=== PATIENT | male | born 1950 | race Caucasian/White ===

== ENCOUNTER 2025-01-19 08:32 | Observation (INO) | payer SELFPAY, OTHER ==
--- NOTE | 2025-01-13 12:31 | EKG12_ITS ---
Test Reason : PREOP Blood Pressure : */* mmHG Vent. Rate : 57 BPM Atrial Rate : 57 BPM P-R Int : 172 ms QRS Dur : 76 ms QT Int : 380 ms P-R-T Axes : 71 26 66 degrees QTcB Int : 369 ms Sinus bradycardia Otherwise normal ECG Confirmed by CHAVEZ MURPHY, LUOIS ([id number]), senior technical editor WILL VELAZQUEZ ([id number]) on 01/14/2025 7:36:28 AM Referred By: José Miguel Artis Confirmed By: LOUIS BYRNE MD
[2025-01-13 13:09] LABS: Hematocrit 39.4 % (40-54); Hemoglobin 13.8 g/dL (13.0-16.5); Mean Corp Hgb Conc 35.0 g/dL (32-36); Mean Corpuscular Volume 88.5 fL (80-94); Mean Platelet Vol. 10.4 fl (6.2-12.0); Platelet Count 283 K/mm3 (150-450); RBC Distribution Width CV 13.4 % (11.6-14.6); RBC Distribution Width SD 43.8 fl (35.1-43.9); Red Blood Count 4.45 M/mm3 (4.6-6.2); White Blood Count 5.5 K/mm3 (4.4-11.0)
[2025-01-13 14:06] LABS: Anion Gap 12 (5-15); BUN 17 mg/dL (4-19); BUN/Creat Ratio 16.2 RATIO (10-20); Calcium,Total 8.9 mg/dL (7.6-11.0); Carbon Dioxide 24.3 mmol/L (21.0-32.0); Chloride 105 mmol/L (98-108); Glucose 139 mg/dL (70-99); Potassium 4.0 mmol/L (3.3-5.1)
[2025-01-19] VITALS (18 sets, daily range): BP systolic 120–161; BP diastolic 69–99; PULSE 60–83; RESP 14–18; TEMP 35.8–36.8; O2SAT 92–98; BMI 27.0
--- OUTSIDE RECORDS SUMMARY | 2025-01-19 06:19 | XMS RPT_ITS | CCD ---
Author Organization [facility] Care Team Providers Care Outreach Liaison Name Role Phone ANTONY DENSON DO Primary Care Physician DR. TANIA CROWE DO Attending Unavailable ANTONY DENSON DO Primary Care Unavailable Rebeca OLSEN, Mirlande Longo Primary Care Unavailabl e José Miguel Artis Referring Unavailable José Miguel Artis Attending Unavailable José Miguel Artis Admitting Unavailable Medications Current Medications Medication Drug Class(es) Dates Sig (Normalized) Sig (Original) cephalexin 500 mg oral capsule (1 source) Cephalosporin Antibacterial Start: 02-27-2022 End: 03-06-2022 cephalexin 500 mg oral capsule Dose : 500 mg = 1 cap(s), Oral, QID, Take with a probiotic, X 7 day(s), # 28 cap(s), 0 Refill(s), 03/06/22 20:45:00 EDT, 81.8 Start Date: 02/27/22 Stop Date: 03/06/22 Status: Ordered Results Test Name Value Interpretation Reference Range Facil ity 12 Lead EKGon 01-13-2025 12 Lead EKG [facility] Cardiovascular Services [address] [place] [address] 12 Lead EKG 01/13/25 1239 MR#: [id number] Acct: [id number] Name: TIMOTHY GREGORY Rep #: [id number] : 1950 74 From: Nick Byrne MD Attending Dr: Dr. José Miguel Artis MD Status: PRE [facility] Ordering Dr: José Miguel Artis MD Date: 01/13/25 Location: [facility] Sex: M C Admitted: Test Reason : PREOP Blood Pressure : */* mmHG Vent. Rate : 57 BPM Atrial Rate : 57 BPM P-R Int : 172 ms QRS Dur : 76 ms QT Int : 380 ms P-R-T Axes : 71 26 66 degrees QTcB Int : 369 ms Sinus bradycardia Otherwise normal ECG Confirmed by NICK BYRNE MD ([id number]), social media editor WILL VELAZQUEZ ([id number]) on 01/14/2025 7:36:28 AM Referred By: José Miguel Artis Confirmed By: NICK BYRNE MD 01/14/2536 Date Nick Byrne MD CC: HEDY Jose; Dr. José Miguel Artis MD Signed Normal [facility] Basic Metabolic Profile (BMP )on 01-13-2025 BUN/CRE 16.2 RATIO Normal 10-20 [facility] Comment on above: Performed By: #### L 100.0500, L500.2500 #### [facility] [address] [place], [address] Calcium [Mass/Vol] 8.9 mg/dL Normal 7.6-11.0 [facility] Comment on above: Performed By: #### L 100.0500, L500.2500 #### [facility] [address] [place], [address] Chloride [Moles/Vol] 105 mmol/L Normal 98-108 [facility] Comment on above: Performed By: #### L 100.0500, L500.2500 #### [facility] [address] [place], [address] CO2 [Moles/Vol] 24.3 mmol/L Normal 21.0-32.0 [facility] Comment on above: Performed By: #### L 100.0500, L500.2500 #### [facility] [address] [place], [address] Creatinine [Mass/Vol] 1.05 mg/dL Normal 0.70-1.20 [facility] Comment on above: Performed By: #### L 100.0500, L500.2500 #### [facility] [address] [place], [address] GAP 12 Normal 5-15 [facility] Comment on above: Performed By: #### L 100.0500, L500.2500 #### [facility] [address] [place], [address] GFR/1.73 sq M.predicted among non-blacks MDRD (S/P/Bld) [Vol rate/Area] 75 mL/min/{1.73_m2} Normal >60 [facility] Comment on above: Result Comment: mL/m in/1.73m2 CKD-EPI Creatinine Equation (2020) Performed By: #### L 100.0500, L500.2500 #### [facility] [address] [place], [address] Glucose [Mass/Vol] 139 mg/dL High 70-99 [facility] Comment on above: Performed By: #### L 100.0500, L500.2500 #### [facility] [address] [place], [address] Potassium [Moles/Vol] 4.0 mmol/L Normal 3.3-5.1 [facility] Comment on above: Result Comment: Hemo lysis present, Results??could be affected. ?? Performed By: #### L 100.0500, L500.2500 #### [facility] [address] [place], [address] Sodium [Moles/Vol] 141 mmol/L Normal 133-145 [facility] Comment on above: Performed By: #### L 100.0500, L500.2500 #### [facility] [address] [place], [address] Urea nitrogen [Mass/Vol] 17 mg/dL Normal 4-19 [facility] Comment on above: Performed By: #### L 100.0500, L500.2500 #### [facility] [address] [place], [address] CBC-Complete Blood Cnt No abrahamon 01-13-2025 Erythrocyte distribution width (RBC) [Ratio] 13.4 % Normal 11.6-14.6 [facility] Comment on above: Performed By: #### L 100.0500, L500.2500 #### [facility] [address] [place], [address] Hematocrit (Bld) [Volume fraction] 39.4 % Low 40-54 [facility] Comment on above: Performed By: #### L 100.0500, L500.2500 #### [facility] [address] [place], [address] Hemoglobin (Bld) [Mass/Vol] 13.8 g/dL Normal 13.0-16.5 [facility] Comment on above: Performed By: #### L 100.0500, L500.2500 #### [facility] [address] [place], [address] MCH (RBC) [Entitic mass] 31.0 pg Normal 27.0-32.0 [facility] Comment on above: Performed By: #### L 100.0500, L500.2500 #### [facility] [address] [place], [address] MCHC (RBC) [Mass/Vol] 35.0 g/dL Normal 32-36 [facility] Comment on above: Performed By: #### L 100.0500, L500.2500 #### [facility] [address] [place], [address] MCV (RBC) [Entitic vol] 88.5 fL Normal 80-94 [facility] Comment on above: Performed By: #### L 100.0500, L500.2500 #### [facility] [address] [place], [address] Platelet mean volume (Bld) [Entitic vol] 10.4 fL Normal 6.2-12.0 [facility] Comment on above: Performed By: #### L 100.0500, L500.2500 #### [facility] [address] [place], [address] Platelets (Bld) [#/Vol] 283 10*3/uL Normal 150-450 [facility] Comment on above: Performed By: #### L 100.0500, L500.2500 #### [facility] [address] [place], [address] RBC (Bld) [#/Vol] 4.45 10*6/uL Low 4.6-6.2 [facility] Comment on above: Performed By: #### L 100.0500, L500.2500 #### [facility] [address] [place], [address] RDW SD 43.8 fl Normal 35.1-43.9 [facility] Comment on above: Performed By: #### L 100.0500, L500.2500 #### [facility] [address] [place], [address] WBC (Bld) [#/Vol] 5.5 10*3/uL Normal 4.4-11.0 [facility] Comment on above: Performed By: #### L 100.0500, L500.2500 #### [facility] [address] [place], [address] XR HAND MINIMUM 3 VIEWS LEFT on 02-27-2022 XR HAND MINIMUM 3 VIEWS LEFT ORIGINAL EXAMINATION: THREE XRAY VIEWS OF THE LEFT HAND 02/27/2022 8:36 pm COMPARISON: None. HISTORY: ORDERING SYSTEM PROVIDED HISTORY: Reason for Exam: pain Laceration 1st and 2nd digits FINDINGS: Transverse minimally comminuted fracture at mid 1st proximal phalanx. Adjacent soft tissue swelling. Punctate radiopaque debris within the soft tissues of the distal 2nd digit. Carpal arcs are maintained. IMPRESSION: Transverse minimally comminuted fracture at mid 1st proximal phalanx. Punctate radiopaque debris within the soft tissues of the distal 2nd digit. I have personally reviewed the images of this examination and agree with the resident's findings and interpretation. Interpreted by: Minesh Marx Preliminary Report By: Nohemi Mcgill Electronically signed By Minesh Marx Dictated Date: 02/27/2022 8:37:31 PM Prelim Date: 02/27/2022 8:40:22 PM Sign Date: 02/27/2022 8:57:57 PM Ordering Provider: TANIA Domínguez [facility] Vital Signs Date Time Vital Sign Value Performing Clinician Armondi queenie 02-27-2022 19:51-0400 Body height 175.[address] TANIA CROWE DO [facility] 02-27-2022 19:51-0400 Body temperature 98.06 [degF] DR TANIA CROWE DO [facility] 02-27-2022 19:51-0400 Body weight 81.[address] TANIA CROWE DO [facility] 02-27-2022 19:51-0400 Diastolic blood pressure 88 mm[Hg] DR TANIA CROWE DO [facility] 02-27-2022 19:51-0400 Heart rate 71 /min DR TANIA CROWE DO [facility] 02-27-2022 19:51-0400 Respiratory rate 20 /min DR TANIA CROWE DO [facility] 02-27-2022 19:51-0400 Systolic blood pressure 176 mm[Hg] DR TANIA CROWE DO [facility] Encounters Encounter Date Encounter Type Care Provider Facility Start: 01-19-2025 ambulatory Mirlande Jose NP Fa cility:[facility] Start: 01-17-2025 Encounter for preprocedural cardiovascular examination José Miguel Artis [facility] Start: 02-27-2022 End: 02-27-2022 Emergency department patient visit DR. TANIA CROWE DO Facility:[facility] Start: 02-27-2022 End: 02-27-2022 Emergency department patient visit DR TANIA CROWE DO [facility] Payers Date Payer Category Payer Self-pay 2025 Unknown 0 2022 Unknown [id number] 1950 Unknown [id number] Unknown [id number] Social History Date Type Detail Facility Tobacco smoking status No Smoking Status Entered [facility] Sex Assigned At Male [facility] Functional Status Date Assessment Result Facility 02-27-2022 Functional Status Up ad shameka [facility] 02-27-2022 Functional Status Room check performed [facility] Mental Status Date Assessment Result Facility 02-27-2022 Mental Status Orientation Oriented x 4 [facility] 02-27-2022 Mental Status [facility] Discharge instructions 02-27-2022 Note Date & Type Note Facility 02-27-2022 Hospital Discharg e instructions Patient Education 02/27/2022 20:45:24 Laceration: All Closures Laceration: All Closures A laceration is a cut through the skin. This will usually require stitches (sutures) or tiago if it is deep. Minor cuts may be treated with a surgical tape closure or skin glue. Home care Your healthcare provider may prescribe an antibiotic. This is to help prevent infection. Follow all instructions for taking this medicine. Take the medicine every day until it is gone or you are told to stop. You should not have any left over. The healthcare provider may prescribe medicines for pain. If no pain medicines were prescribed, you can use abfz-ipo-llcpacc pain medicines. Follow instructions for taking any pain medicines. (Note: If you have chronic liver or kidney disease, or ever had a stomach ulcer or gastrointestinal bleeding, talk with your doctor before using these medicines.) Follow the healthcare provider s instructions on how to care for the cut. Keep the wound clean and dry. Do not get the wound wet until you are told it is OK to do so. If the area gets wet, gently pat it dry with a clean cloth. Replace the wet bandage with a dry one. If a bandage was applied and it becomes wet or dirty, replace it. Otherwise, leave it in place for the first 24 hours. Caring for sutures or tiago: Once you no longer need to keep them dry, clean the wound daily. First, remove the bandage. Then wash the area gently with soap and warm water, or as directed by the healthcare provider. Use a wet cotton swab to loosen and remove any blood or crust that forms. After cleaning, apply a thin layer of antibiotic ointment if advised. Then put on a new bandage unless you are told not to. Caring for skin glue: Don t put apply liquid, ointment, or cream on the wound while the glue is in place. Avoid activities that cause heavy sweating. Protect the wound from sunlight. Do not scratch, rub, or pick at the adhesive film. Do not place tape directly over the film. The glue should peel off within 5 to 10 days. Caring for surgical tape: Keep the area dry. If it gets wet, blot it dry with a clean towel. Surgical tape usually falls off within 7 to 10 days. If it has not fallen off after 10 days, you can take it off yourself. Put mineral oil or petroleum jelly on a cotton ball and gently rub the tape until it is removed. Once you can get the wound wet, you may shower as usual but do not soak the wound in water (no tub baths or swimming) Even with proper treatment, a wound infection may sometimes occur. Check the wound daily for signs of infection listed below. Scalp wounds During the first 2 days, you may carefully rinse your hair in the shower to remove blood, glass or dirt particles. After two days, you may shower and shampoo your hair normally. Do not soak your scalp in the tub or go swimming until the stitches or tiago have been removed. Talk with your healthcare provider before applying any antibiotic ointment to the wound. Mouth wounds Eat soft foods to reduce pain. If the cut is inside of your mouth, clean by rinsing after each meal and at bedtime with a mixture of equal parts water and hydrogen peroxide (do not swallow!). Or, you can use a cotton swab to directly apply hydrogen peroxide onto the cut. You may also be prescribed a chlorhexidine solution to rise with. Mouth wounds can be painful when eating. You may use an lunu-ufm-bleevmg local numbing solution for pain relief. If this is not available, you may use any numbing solution intended for teething babies. You may apply this directly to the sores with a cotton-tip swab or with your finger. Follow-up care Follow up with your healthcare provider as advised. Ask your healthcare provider how long sutures should be left in place. Be sure to return for suture removal as directed. If dissolving stitches were used in the mouth, these should fall out or dissolve without the need for removal. If tape closures were used, remove them yourself when your provider recommends if they have not fallen off on their own. If skin glue was used, the film will wear off by itself. Generally, you should keep healing wounds out of direct sunlight for the first couple of months to try to lessen scarring. When to seek medical advice Call your healthcare provider right away if any of these occur: Signs of infection, including increasing pain in the wound, increasing wound redness or swelling, or pus or bad odor coming from the wound Fever of 100.4 F (38. C) or higher, or as directed by your healthcare provider Stitches or tiago come apart or fall out or surgical tape falls off before 7 days Wound edges reopen Wound changes colors Numbness around the wound after any numbing medicine should have worn off Decreased movement around the injured area Call 911 Call 911 if you can't control the wound bleeding with direct pressure. [phone] [employer]. [address] [place] [address], [place] [address]. All rights reserved. This information is not intended as a substitute for professional medical care. Always follow your healthcare professional's instructions. Follow Up Care 02/27/2022 19:42:35 With:ERIC FOURNIER MD Address: [address] [place] [address]- [phone] When:2-4 days Comments:Call Tomorrow With:ANTONY DENSON DO Address: [address] [address] [place] [address]- [phone] When:2-4 days [facility] Clinical Note 02-27-2022 Note Date & Type Note Facility 02-27-2022 Note ORIGINAL EXAMINATION: THREE XRAY VIEWS OF THE LEFT HAND 02/27/2022 8:36 pm COMPARISON: None. HISTORY: ORDERING SYSTEM PROVIDED HISTORY: Reason for Exam: pain Laceration 1st and 2nd digits FINDINGS: Transverse minimally comminuted fracture at mid 1st proximal phalanx. Adjacent soft tissue swelling. Punctate radiopaque debris within the soft tissues of the distal 2nd digit. Carpal arcs are maintained. IMPRESSION: Transverse minimally comminuted fracture at mid 1st proximal phalanx. Punctate radiopaque debris within the soft tissues of the distal 2nd digit. I have personally reviewed the images of this examination and agree with the resident's findings and interpretation. Interpreted by: Minesh Marx Preliminary Report By: Nohemi Mcgill Electronically signed By Minesh Marx Dictated Date: 02/27/2022 8:37:31 PM Prelim Date: 02/27/2022 8:40:22 PM Sign Date: 02/27/2022 8:57:57 PM Ordering Provider: TANIA CROWE [facility] Clinical Note 02-27-2022 Note Date & Type Note Facility 02-27-2022 Note Discharge Instructions Thank you for allowing [facility] to assist you with your healthcare needs. The following is important discharge information regarding your hospital visit. Diagnosis from Today's Visit Finger injury - Minor What to Do Next Instructions from Your Care Team No qualifying data available. Post Acute Orders No qualifying data available. You Need to Schedule the Following Appointments Follow Up with ERIC FOURNIER MD When Within 2-4 days Why: Call Tomorrow Where: [address] [place] [address] [phone] Follow Up with ANTONY DENSON DO When Within 2-4 days Where: [address] [id number] [address] [place] [address]- [phone] Allergies NKA Medications Please ask your primary doctor or pharmacist before taking any other medication not listed, including over the counter drugs, herbal medications, vitamins and or supplements as they may interact with your home medications. What How Much When Instructions Last Dose New cephalexin (cephalexin 500 mg oral capsule) 1 cap by mouth Four (4) times a day Duration: 7 Days Take with a probiotic Printed Prescription Please take this list to your next doctor s visit. Bring all medications you take, including over the counter medications, herbals and other supplements with you to your doctor s visit. Patients and families are reminded to discard old lists and to update any records with all medication providers or retail pharmacies. Education Materials Laceration: All Closures A laceration is a cut through the skin. This will usually require stitches (sutures) or tiago if it is deep. Minor cuts may be treated with a surgical tape closure or skin glue. Home care Your healthcare provider may prescribe an antibiotic. This is to help prevent infection. Follow all instructions for taking this medicine. Take the medicine every day until it is gone or you are told to stop. You should not have any left over. The healthcare provider may prescribe medicines for pain. If no pain medicines were prescribed, you can use nluj-myy-lmngdrm pain medicines. Follow instructions for taking any pain medicines. (Note: If you have chronic liver or kidney disease, or ever had a stomach ulcer or gastrointestinal bleeding, talk with your doctor before using these medicines.) Follow the healthcare provider s instructions on how to care for the cut. Keep the wound clean and dry. Do not get the wound wet until you are told it is OK to do so. If the area gets wet, gently pat it dry with a clean cloth. Replace the wet bandage with a dry one. If a bandage was applied and it becomes wet or dirty, replace it. Otherwise, leave it in place for the first 24 hours. Caring for sutures or tiago: Once you no longer need to keep them dry, clean the wound daily. First, remove the bandage. Then wash the area gently with soap and warm water, or as directed by the healthcare provider. Use a wet cotton swab to loosen and remove any blood or crust that forms. After cleaning, apply a thin layer of antibiotic ointment if advised. Then put on a new bandage unless you are told not to. Caring for skin glue: Don t put apply liquid, ointment, or cream on the wound while the glue is in place. Avoid activities that cause heavy sweating. Protect the wound from sunlight. Do not scratch, rub, or pick at the adhesive film. Do not place tape directly over the film. The glue should peel off within 5 to 10 days. Caring for surgical tape: Keep the area dry. If it gets wet, blot it dry with a clean towel. Surgical tape usually falls off within 7 to 10 days. If it has not fallen off after 10 days, you can take it off yourself. Put mineral oil or petroleum jelly on a cotton ball and gently rub the tape until it is removed. Once you can get the wound wet, you may shower as usual but do not soak the wound in water (no tub baths or swimming) Even with proper treatment, a wound infection may sometimes occur. Check the wound daily for signs of infection listed below. Scalp wounds During the first 2 days, you may carefully rinse your hair in the shower to remove blood, glass or dirt particles. After two days, you may shower and shampoo your hair normally. Do not soak your scalp in the tub or go swimming until the stitches or tiago have been removed. Talk with your healthcare provider before applying any antibiotic ointment to the wound. Mouth wounds Eat soft foods to reduce pain. If the cut is inside of your mouth, clean by rinsing after each meal and at bedtime with a mixture of equal parts water and hydrogen peroxide (do not swallow!). Or, you can use a cotton swab to directly apply hydrogen peroxide onto the cut. You may also be prescribed a chlorhexidine solution to rise with. Mouth wounds can be painful when eating. You may use an lmrr-zyc-glimsxd local numbing solution for pain relief. If this is not available, you may use any numbing solution intended for teething babies. You may apply this directly to the sores with a cotton-tip swab or with your finger. Follow-up care Follow up with your healthcare provider as advised. Ask your healthcare provider how long sutures should be left in place. Be sure to return for suture removal as directed. If dissolving stitches were used in the mouth, these should fall out or dissolve without the need for removal. If tape closures were used, remove them yourself when your provider recommends if they have not fallen off on their own. If skin glue was used, the film will wear off by itself. Generally, you should keep healing wounds out of direct sunlight for the first couple of months to try to lessen scarring. When to seek medical advice Call your healthcare provider right away if any of these occur: Signs of infection, including increasing pain in the wound, increasing wound redness or swelling, or pus or bad odor coming from the wound Fever of 100.4 F (38. C) or higher, or as directed by your healthcare provider Stitches or tiago come apart or fall out or surgical tape falls off before 7 days Wound edges reopen Wound changes colors Numbness around the wound after any numbing medicine should have worn off Decreased movement around the injured area Call 911 Call 911 if you can't control the wound bleeding with direct pressure. [phone] [employer]. [address] [place] [address]. All rights reserved. This information is not intended as a substitute for professional medical care. Always follow your healthcare professional's instructions. Additional Information VACCINATE! IT SAVES LIVES! Members of the community who have not yet received the COVID-19 vaccine and would like to receive it can visit one of [facility] vaccine clinics. There are many vaccine clinic locations within the [facility]. For locations and available times, please visit [email or web address]. It is important to note that some COVID mobile vaccine clinics are held outdoors and may be canceled in rainy or stormy conditions. To learn more about pediatric vaccinations (ages 5-11), we invite you to visit the [facility] webpage. [email or web address]/pages/[email or web address]-Kfydj-Rwgmacglqqb-Frequently-Asked -Questions.html To learn more about the COVID-19 vaccine, we invite you to visit the [facility] website for a list of frequently asked questions. [email or web address]/[email or web address] d-[email or web address]/[email or web address]-Dujzlkhwhc_Qs ked-Questions.pdf [facility] [employer] Patient Portal Access Instructions: Stay connected with your healthcare team and access your personal medical information anytime with the [facility] Patient Portal. If you would like a full copy of your medical records please contact the [facility] Medical Records Department Friday through Friday between 8a.m. and 4:30p.m. Please follow the directions below to access the portal: 1.Access the email account you provided upon registration to the [facility].2.Look for an invitation email from [facility].3.Open the email and access the invitation link: Accept Invitation to [facility].Fill in the required lerma to create your account. Sign into www.[employer] with your username and password that you created in the above steps to stay up to date. You can then view a summary of results, a summary of your visits, and the ability to download your summaries to your computer or send the information securely to a physician. Remember that your healthcare information is confidential, so carefully consider who you will allow to register on the [place] [employer] Patient Portal for access to your information. You can also access the [facility] Patient Portal on the [employer] harley. Simply click on Health Records under Health Data and then click on the [facility] logo. HOW TO SAFELY DISPOSE OF PRESCRIPTION MEDICATIONS Please use one of the following methods to safely dispose of your unused medications. 1.Use a drug disposal kit: the drug disposal pouch allows you to safely discard your old and unused drugs. Ask your nurse to give you one when you are discharged.2.Visit a local take-back location: Many local pharmacies and police departments have programs that collect old and unwanted prescription drugs. Call your local pharmacy or go to http://bit.[employer]/0S9Wd5o to find one close to you.3.Make use of household items: Use cat litter or old coffee grounds to dispose medications if other options are not available. Mix your drugs with these household products, seal them in an airtight container and throw it into the garbage. Call [facility]: [phone] to be sure your drugs can be disposed of in this way. Some medicines may require a different approach.4.Never flush your medications down the toilet. IF YOU HAVE BEEN PRESCRIBED AN OPIOIDS FOR PAIN If you have been prescribed an opioid (such as hydrocodone, oxycodone or morphine), it is critical to understand the possible side effects and risks of opioid pain medications. Even when taken as directed, opioids can have several side effects including: Tolerance, meaning you might need to take more of a medication for the same pain relief. Nausea, vomiting and/or constipation. Sleepiness, dizziness, dry mouth, confusion, depression or itching. Physical dependence, meaning you have withdrawal symptoms when a medication is stopped ? this can develop within a few days. KNOW YOUR RESPONSIBILITIES It is important to know exactly how much and how often to take the opioid pain medications you are prescribed. Never take opioids in higher amounts or more often than prescribed. Do not combine opioids with alcohol or other drugs that cause drowsiness, such as benzodiazepines, also known as benzos, including diazepam and alprazolam, muscle relaxants or sleep aids. Never sell or share prescription opioids. This is illegal. Store opioids in a secure place and out of reach of others (including children, family, friends and visitors). The last page(s) of this document has been signed and retained as a CHART COPY Signatures Patient Education Materials Laceration: All Closures Medication Leaflets My discharge plan and instructions have been reviewed and explained to me and I,GREGORY, TIMOTHY understand my current condition and have read and understand these discharge instructions. I have received a written copy of the plan/instructions. If I have questions, I am aware that I should contact my doctor. 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 HISTORY: ORDERING SYSTEM PROVIDED HISTORY: Reason for Exam: pain Laceration 1st and 2nd digits FINDINGS: Transverse minimally comminuted fracture at mid 1st proximal phalanx. Adjacent soft tissue swelling. Punctate radiopaque debris within the soft tissues of the distal 2nd digit. Carpal arcs are maintained. IMPRESSION: Transverse minimally comminuted fracture at mid 1st proximal phalanx. Punctate radiopaque debris within the soft tissues of the distal 2nd digit. I have personally reviewed the images of this examination and agree with the resident's findings and interpretation. Interpreted by: Minesh Marx Preliminary Report By: Nohemi Mcgill Electronically signed By Minesh Marx Dictated Date: 02/27/2022 8:37:31 PM Prelim Date: 02/27/2022 8:40:22 PM Sign Date: 02/27/2022 8:57:57 PM Ordering Provider: TANIA CROWE [facility] Evaluation + Plan note Note Date & Type Note Facility Evaluation + Plan note No data available for this section [facility] Summary Purpose Family History No Family History Records FoundNo Family History Records Found Advance Directives No Advanced Directives Records FoundNo Advanced Directives Records Found Additional Source Comments Care Team (unrecognized sect ion and content) Care Team Personnel Name: ANTONY DENSON DO Med Service: Family Practice Member Role: Primary Care Physician Address: Address: [facility] [id number] [place], [place] [id number] [place] [address] (unrecognized sect ion and content) No Status Records FoundNo Status Records Found INFORMATION SOURCE (unrecogn ized section and content) DATE CREATED AUTHOR 07/03/2022 [facility] ([place]) DATE CREATED AUTHOR AUTHOR'S MIKALAIZ ATDOUGLAS 01/18/2025 [facility] FOR RECORDS PERTAINING TO PATIENTS WHO ARE OR HAVE BEEN ENROLLED IN A CHEMICAL DEPENDENCY/SUBSTANCEABUSE PROGRAM, SOME INFORMATION MAY BE OMITTED. This clinical summary was aggregated from multiple sources. Caution should be exercised in using it in the provision of clinical care. This summary normalizes information from multiple sources, and as a consequence, information in this document may materially change the coding, format and clinical context of patient data. In addition, data may be omitted in some cases. CLINICAL DECISIONS SHOULD BE BASED ON THE PRIMARY CLINICAL RECORDS. [facility] [facility]. provides no warranty or guarantee of the accuracy or completeness of information in this document.
[2025-01-19] MEDS: Lactated Ringers 1,000 ML 15 ML IV (06:46)
--- NOTE | 2025-01-19 07:21 | PRE.ANES_ITS ---
ASA Classification* ASA Classification ASA Classification: 2 Assessment & Plan Anesthesia* Anesthesia Assessment Anesthesia Assessment: Discussed sedation and/or anesthesia options, risks, benefits, and alternatives with patient/parents/legal guardian/POA. Questions invited. The patient/parents/legal guardian/POA seems to understand and agrees to proceed with anesthesia plan. Reviewed the physical assessment, medical history, allergy history and patient home medications list prior to surgery/procedure/anesthetic and documented any changes. Performed airway and anesthesia risk assessments. Anesthesia Type Anesthesia Type: General History Source History Obtained from:: Patient and Chart Anesthesia Focused Assessment* Temperature: 97 F Pulse Rate: 65 Blood Pressure: 144/93 Respiratory Rate: 16 Pulse Ox: 98 Oxygen Delivery Method: Room Air Airway Assessment Mouth opens: 2 cm Mallampati Score: II Teeth Condition: Intact Neck Range of motion (ROM): Full ROM Labs Anesthesia Preop lab: CBC WBC 5.5 K/mm3 (4.4-11.0) 01/13/25 12:52 01/13/25 RBC 4.45 M/mm3 (4.6-6.2) L 01/13/25 12:52 01/13/25 Hgb 13.8 g/dL (13.0-16.5) 01/13/25 12:52 01/13/25 Hct 39.4 % (40-54) L 01/13/25 12:52 01/13/25 Plt Count 283 K/mm3 (150-450) 01/13/25 12:52 01/13/25 CHEMISTRY Potassium 4.0 mmol/L (3.3-5.1) 01/13/25 12:52 01/13/25 Sodium 141 mmol/L (133-145) 01/13/25 12:52 01/13/25 BUN 17 mg/dL (4-19) 01/13/25 12:52 01/13/25 Creatinine 1.05 mg/dL (0.70-1.20) 01/13/25 12:52 01/13/25 Glucose 139 mg/dL (70-99) H 01/13/25 12:52 01/13/25 COAG Pre-Assessment Diagnosis/Proposed Procedure Planned Operative Procedure(s): Cysto,Transurethral Resection Prostate Anesthesia History 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 When Was Last Pacemaker Check QUESTION #4 FULL TEXT: You/Your Family Experience fever (hyperthermia) with Anesthesia Last Oral Intake Last Oral intake: Last Oral Intake NPO since 04:30 01/19/25 06:34 Meds taken in AM with sips of water? Meds patient instructed to take am of surgery PONV PONV - vibrator equipment tester: PONV - vibrator equipment tester Female No 01/10/25 13:39 HX of Motion Sickness Yes 01/10/25 13:39 HX of N/V After Surgery No 01/10/25 13:39 Non-Smoker Yes 01/10/25 13:39 Duration of Surgery greater Yes 01/10/25 13:39 than 60 minutes Number of Risk Factors 3 01/10/25 13:39 PONV Score Moderate Risk 01/10/25 13:39 Height & Weight Height & Weight: Anesthesia: Height & Weight Height 5 ft 9 in 01/19/25 06:34 Weight: 83.007 kg 01/19/25 06:34 Body Mass Index (BMI) 27.0 01/19/25 06:34 Respiratory Assessment Respiratory Assessment - vibrator equipment tester: Respiratory Tract Infection Hx - vibrator equipment tester Hx Respiratory Tract Infection No 01/10/25 13:39 STOP Sleep Apnea STOP Sleep Apnea - vibrator equipment tester: STOP Sleep Apnea - vibrator equipment tester Hx Hypertension Yes: CONTROLLED WITH MED 01/10/25 13:39 Hx Sleep Apnea No 01/10/25 13:39 CPAP BIPAP Do you snore loudly (louder No 01/10/25 13:39 than talking or can be heard Do you often feel tired/ No 01/10/25 13:39 fatigued/ sleepy during daytime? Has anyone observed you stop No 01/10/25 13:39 breathing during sleep? STOP Results Negative 01/10/25 13:39 QUESTION #5 FULL TEXT : Do you snore loudly (louder than talking or can be heard through closed doors)? 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 Specify any problems Hx of Preganancy in last 3 N/A 01/10/25 13:39 Months Nurse Filling Out Transfusion NBUCHER 01/10/25 13:39 & Questions: Date: 01/10/25 01/10/25 13:39 Time: 13:41 01/10/25 13:39 Patient unable to answer at this time (ie. confused, unrespo /Reproduction History /Reproductive History - vibrator equipment tester: /Reproductive Hx- vibrator equipment tester Hx Now No 01/10/25 13:39 Gestational Age (in weeks): EDC: Hx Hx Para Hx Section SAB No 01/10/25 13:39 Active Medications Active Medications: Current Medications Generic Name Dose Route Start Last Admin Trade Name Freq PRN Reason Stop Dose Admin Cefazolin Sodium 2 gm/ Sodium 110 mls @ 200 mls/hr 01/19/25 08:10 Chloride IV 01/19/25 08:42 INTRAOP ONE Lactated Ringer's 1,000 mls @ 15 mls/hr 01/19/25 06:30 01/19/25 06:46 IV 15 mls/hr .Q48H BHUMIKA Administration PFSH Medical History (Updated 01/10/25 @ 13:48 by Cinthya Michelle) Wears hearing aid Loss of hearing Wears glasses BPH (benign prostatic hyperplasia) Prostate disease High cholesterol Migraine headache Former smoker Hypertension Home Medications ?Medication ?Instructions ?Recorded ?Last Taken ?Type garlic extract 500 mg capsule 1 mg PO DAILY 01/10/25 0 01/18/25 History omega 1-hhf-sif-fish oil 1,200 mg 1 cap PO DAILY 01/1001/14/25 History (144 mg-216 mg) capsule (Fish Oil) saw palmetto 160 mg capsule 160 mg PO DAILY 01/10/25 0 01/14/25 History telmisartan 40 mg tablet (Micardis) 40 mg PO DAILY 01/18/25 History Allergy/AdvReac Type Severity Reaction Status Date / Time No Known Allergies Allergy Verified 01/19/25 06:32 Surgical History (Updated 01/10/25 @ 13:48 by Cinthya Michelle) History of excision of lesion Social History Smoking Status: Former smoker Review of Systems (Anesthesia) ROS Narrative System reviewed and no additional complaints, except as documented.
--- NOTE | 2025-01-19 08:10 | PROS_PTH ---
PATIENT: TIMOTHY GREGORY LOC: MS3 U#:[id number] AGE/SX: 74/M ROOM: [id number] RE01/19/[address]: Dr. José Miguel Artis MD : 1950 BED: 1 DIS: 01/20/2025 SPEC #: [id number] RECD: 01/19/25 11:46 STATUS: JODEE REDavid #: [id number] SONJA: 01/19/25 08:[address]: José Miguel Artis DEPT: SURGICAL PATHOLOGY RECD BY: Chavo Arellano ENTERED: 01/19/25 14:42 SP TYPE: TURP OTHR DR: Mirlande Jose, BOARD FINISHER-C Tissues: A - Prostate, NOS Procedures: Surgery Specimen Level IV HEADER OPERATION: Transurethral resection, prostate PRE-OP DIAGNOSIS: Benign prostatic hyperplasia TISSUE SUBMITTED: A- Prostate tissue MICROSCOPIC DIAGNOSIS A. Prostate, transurethral resection: - Focal adenocarcinoma Leary 3+3=6, 1 mm span in one tissue fragment, involving <1% of the specimen. - Patchy acute prostatitis. MICROSCOPIC DESCRIPTION Slides are reviewed. GROSS DESCRIPTION A. Received in formalin labeled with the patient's name and date of . Designated as prostate tissue is a 11.4 g, 6.0 x 5.2 x 1.4 cm aggregate of irregular, swartz, rubbery and cauterized tissue fragments. Entirely submitted in 6 cassettes. AK 01/19/2025 CPT:01814
[2025-01-19] MEDS: Lactated Ringers 1,000 ML 1000 ML IV (08:30)
[2025-01-19] MEDS: Midazolam 2 MG/2 ML Syringe IV (08:30)
--- NOTE | 2025-01-19 08:34 | DCINST_ITS ---
Discharge Instructions DC O2, CPAP, BIPAP needs Home O2 Discharge instructions: No Dressing / Incision Discharge Activity: Return to Normal Activity and May Not Drive (while taking narcotic pain medications.) Dressing / Incision Call your doctor if you observe: Fever of 101 or Higher Follow Up Care Please Follow Up With: José Miguel Artis MD When: Call [phone] for an appointment Test Results: Test results from this visit will be discussed in further detail at your follow- up appointment, if applicable. Discharge Plan Admission Primary Reason for Your Visit: turp Attending Provider: José Miguel Artis Primary Care Provider: Mirlande Jose NP Instructions Print Language: Bengali Discharge Orders/Prescriptions Prescriptions: New ciprofloxacin HCl [Cipro] 500 mg tablet 500 mg PO BID Qty: 10 0RF Continued telmisartan [Micardis] 40 mg tablet 40 mg PO DAILY garlic extract 500 mg capsule 1 mg PO DAILY saw palmetto 160 mg capsule 160 mg PO DAILY omega 2-tjm-wnx-fish oil [Fish Oil] 1,200 (144-216) mg capsule 1 cap PO DAILY Referrals / Follow Up: José Miguel Artis MD [Med Staff - Active Staff] - Mirlande Jose NP, [employer] [Primary Care Provider] - Disposition Disposition (needs filled in before D/C Order can be placed): Home, Self Care
[2025-01-19] MEDS: Lidocaine 1% (5 ml sdv) 5 ML Vial IV (08:36)
[2025-01-19] MEDS: fentaNYL 100 MCG/2 ML Ampul IV (08:36)
[2025-01-19] MEDS: Cefazolin 1 GM/5 ML Vial 2 GM IV (08:37)
--- NOTE | 2025-01-19 09:36 | PCM.OPRPT ---
Operative Report (Standard) Operative Information Date of Procedure: 01/19/25 Pre-Operative Diagnosis: BPH with obstruction Post-Operative Diagnosis: The same Surgery/Procedure Performed: Transurethral section of the prostate product mgr: No Type of Anesthesia: General RN Documented Start/Stop Times: Operation Date: 01/19/25 08:10 Case Time Into Pre-Op 01/19/25 06:22 Procedure Start Time: 08:30 Procedure Stop Time: 09:36 Select all DRAINS/GRAFTS/IMPLANTS that apply: Drains Drain details: 22 Citizen Of [place] three-way Pride Estimated Blood Loss: 10 cc Specimen collected: Yes Description of specimen(s) removed: Prostate tissue Description of surgery: Patient was taken back to the operating room after smooth induction of anesthesia he was placed in dorsolithotomy position penis and testicles were prepped and draped in usual fashion dilated the penis with sounds from 14 Citizen [place] to 28 Citizen [place] I then went into the bladder with a 26 [place] continuous-flow Olympus bipolar resectoscope started resecting the prostate started resecting the median lobe this protruding into the prostate causing obstruction and resected all this tissue back to the bladder neck he had a a lot of pedunculated tissue coming in from the lateral aspect of the prostate. Once this was resected then I started in the midline the prostate at the 6:00 resected back to the verumontanum I then resected the right lobe of the prostate completely resected on the apical tissue resected the left low the prostate completely pulled back into the sphincter sphincter looked intact little bit of flapping tissue that had to be resected to open this up therefore had an adequate flow but it did not really want to resect more because it was really close to the sphincter cauterized to obtain good hemostasis put a 22 Citizen [place] catheter into the bladder for continuous bladder irrigation after successfully resecting the entire prostate open channel the urine was fairly clear tissue was fairly hard this is concerning for prostate cancer we will see what the tissue pathology shows taken back to the PACU in good condition and stay overnight for irrigation Surgical Findings: Obstructive prostate with enlarged prostate with median lobe hard tissue Complications Complications: No Admit VTE Documentation VTE Present on Admission: No VTE Mechan Device Prophylaxis: SCD's VTE Pharm Prophylaxis ordered?: No
--- NOTE | 2025-01-19 09:43 | PCM.POST.ANE ---
Anesthesia: Postop Eval I Current Vital Signs Temperature: 97.9 F Pulse Rate: 83 Blood Pressure: 140/90 Respiratory Rate: 16 Pulse Ox: 96 Oxygen Delivery Method: Room Air Assessment Airway patent: Yes Spontaneous unlabored respirations: Yes Mental status: Asleep nausea: No Vomiting: No Anesthesia Complication: No Fluid Hydration Crystalloid volume administer (ml): 900 Total IV fluid infused: 900 Progress Note Anesthesia document: Postop Eval 1 completed: Yes
[2025-01-19] MEDS: 0.9% Normal Saline (1000mL) 1,000 ML 125 ML IV ×2 (09:54→17:18)
--- NOTE | 2025-01-19 13:04 | POSTOPAN2_ITS ---
Anesthesia Postop Eval I Sum Postop Eval Completion status Anesthesia document: Postop Eval 1 completed: Yes Anesthesia Postop Eval I Summary Anesthesia Postop Eval I Summary: Anesthesia Postop Eval I: Assessment Summary Airway patent Yes 01/19/25 09:44 LOOK OUT TOWER FIRE [email or web address].[email or web address] Spontaneous unlabored Yes 01/19/25 09:44 LOOK OUT TOWER FIRE [email or web address].[email or web address] respirations Mental status Asleep 01/19/25 09:44 LOOK OUT TOWER FIRE [email or web address].[email or web address] nausea No 01/19/25 09:44 LOOK OUT TOWER FIRE [email or web address].[email or web address] Vomiting No 01/19/25 09:44 LOOK OUT TOWER FIRE WATCHER.[email or web address] Anesthesia Postop Eval I: Fluid Summary Crystalloid volume administer 900 01/19/25 09:44 LOOK OUT TOWER FIRE WATCHER.[email or web address] (ml) Colloids volume administered ( ml) Blood Product volume administered (ml) Total IV fluid infused 900 01/19/25 09:44 LOOK OUT TOWER FIRE WATCHER.[email or web address] Anesthesia Postop Eval I: Summary Notes Anesthesia Complication No 01/19/25 09:44 LOOK OUT TOWER FIRE WATCHER.[email or web address] Anesthesia Complication Comment: Post-operative progress note Anesthesia: Postop Eval II Evaluation Mental status: Awake Pain Level: 0 nausea: No Vomiting: No Complications Anesthesia Complication: No
--- NOTE | 2025-01-19 13:04 | PCM.POSTANE2 ---
Anesthesia Postop Eval I Sum Postop Eval Completion status Anesthesia document: Postop Eval 1 completed: Yes Anesthesia Postop Eval I Summary Anesthesia Postop Eval I Summary: Anesthesia Postop Eval I: Assessment Summary Airway patent Yes 01/19/25 09:44 INSOLE [email or web address] Spontaneous unlabored Yes 01/19/25 09:44 INSOLE [email or web address] respirations Mental status Asleep 01/19/25 09:44 INSOLE [email or web address] nausea No 01/19/25 09:44 INSOLE [email or web address] Vomiting No 01/19/25 09:44 INSOLE [email or web address] Anesthesia Postop Eval I: Fluid Summary Crystalloid volume administer 900 01/19/25 09:44 INSOLE [email or web address] (ml) Colloids volume administered ( ml) Blood Product volume administered (ml) Total IV fluid infused 900 01/19/25 09:44 INSOLE [email or web address] Anesthesia Postop Eval I: Summary Notes Anesthesia Complication No 01/19/25 09:44 INSOLE [email or web address] Anesthesia Complication Comment: Post-operative progress note Anesthesia: Postop Eval II Evaluation Mental status: Awake Pain Level: 0 nausea: No Vomiting: No Complications Anesthesia Complication: No
[2025-01-20] MEDS: 0.9% Normal Saline (1000mL) 1,000 ML 125 ML IV (00:23)
[2025-01-20 05:53] VITALS: BP 142/71; PULSE 75; RESP 18; TEMP 36.5; O2SAT 95
--- NOTE | 2025-01-20 07:16 | PCM.PN.GU ---
Subjective Subjective s/p turp doign well urine clear, no clots d/c jacques home after voids Objective Data Objective Data Vital Signs: Vital Signs Temp Pulse Resp BP Pulse Ox O2 Del Method 97.7 F L 75 18 142/71 H 95 Room Air 01/20/25 05:53 01/20/25 05:53 01/20/25 05:53 01/20/25 05:53 01/20/25 05:53 01/20/25 05:53 Oxygen Delivery Method Room Air Weight: 83.007 kg Body Mass Index (BMI) 27.0 Intake & Output: Intake and Output for Last 24 Hours 01/18/25 01/19/25 01/20/25 23:59 23:59 23:59 Intake Total 2605 / 2605 1885.42 / 1885.42 Output Total 1360 / 1360 Balance 1245 / 1245 1885.42 / 1885.42 Lab / Micro Data 01/13/25 12:52 01/13/25 12:52
[2025-01-20 10:09] VITALS: BP 132/76; PULSE 56; RESP 18; TEMP 36.4; O2SAT 97
--- NOTE | 2025-01-20 10:35 | CASEMGMT ---
Addendum entered by Lizzeth Arzate 01/20/25 11:20: RN KITTY back to the pt's room who states that their daughter cannot pick the pt up and that they are wanting to use the hospital's transportation services. Notified the pt and pt's RN to be at the main entrance at 1300 today. No further needs identified. Original Note: Pt's RN reports that the pt is requesting transportation through [facility] as they have used this in the past. 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 RN CM to the pt room at this time. Pt's at bedside. Pt and pt state that they do not want to wait that long and they are now going to call their daughter to see if she will be able to pick the pt up today. Pt's RN notified. CM to follow.
--- NOTE | 2025-01-20 12:15 | PHA.DC_ITS ---
Pharmacy [facility] has performed discharge medication counseling for this patient. The patient was counseled on the following discharge medications and changes in medications for homegoing review. - Ciprofloxacin The Reason for Use, instructions for use, and potential side effects were reviewed for all new medications. The patient's questions regarding all of their medications were answered. The patient was able to verbally demonstrate an understanding of their discharge medications.
== END 2025-01-20 12:38 | disposition home or self-care (01) ==
LOC: SDC 10:52 → MS3 10:52
PROVIDERS: Admitting Provider Urology; PCP Nurse Practitioner Family; Referring Provider Urology; Visit Provider Urology
PROC: (CPT 52601; principal; 2025-01-19 08:00)
DX: N40.1 Benign prostatic hyperplasia with lower urinary tract symptoms (principal); N13.8 Other obstructive and reflux uropathy; R35.1 Nocturia; R39.12 Poor urinary stream; I10 Essential (primary) hypertension; Z87.891 Personal history of nicotine dependence; Z79.899 Other long term (current) drug therapy; R00.1 Bradycardia, unspecified
CPT/HCPCS: 52601; 00914; 36415; 80048; 85027; 88305; 93005; 94668; 96361; 96365; 96366; 96375; 96376; 99221; G0378; J0744